=== PATIENT | male | born 1980 | race African-American/Black ===

== ENCOUNTER 2016-04-18 12:29 | Emergency (ER) | payer SELFPAY ==
[2016-04-18 12:37] VITALS: BP 110/75; PULSE 96; TEMP 97.7; BMI 24.3
--- NOTE | 2016-04-18 14:01 | PDOC ---
History of Present Illness - General Chief Complaint: Cold Symptoms Stated Complaint: COLD SYMPTOMS Time Seen by Provider: 04/18/16 13:27 History Source: Patient Exam Limitations: No Limitations - History of Present Illness Initial Comments: 04/18/16 13:57 35 y/o male presents to the ED with complaints of intermittent cough, fevers intimately for the past week and a half and left ear pressure. Patient states symptoms began while he was in [place] and continued since flying home. Patient denies change in appetite, weight loss, night sweats, smoking history, medical history, or recent illness. Timing/Duration: reports: intermittent Severity: reports: mild Possible Cause: Yes: occasional episodes Modifying Factors: improves with: coughing Associated Symptoms: reports: cough, earache, fever/chills, headache ( intermittent frontal 2 weeks). denies: nasal congestion, sinus infection, sore throat Past History - Past Medical History Allergies/Adverse Reactions: Allergies Allergy/AdvReac Type Severity Reaction Status Date / Time No Known Allergies Allergy Verified 04/18/16 12:37 Home Medications: Ambulatory Orders NK [No Known Home Medication] 04/18/16 - Psycho/Social/Smoking Cessation Hx Suicidal Ideation: No Smoking History: Never smoked Information on smoking cessation initiated: No Patient Lives Alone: No Lives with/in: spouse/SO Review of Systems - Review of Systems Able to Perform ROS?: Yes Constitutional: Yes: Chills, Fever HEENTM: Yes: Ear Pain Respiratory: Yes: Cough. No: Wheezing Cardiac (ROS): No: Symptoms Reported ABD/GI: No: Symptoms Reported : No: Symptoms Reported Musculoskeletal: No: Symptoms Reported Integumentary: No: Symptoms Reported Neurological: Yes: Headache (mild fromtal intermittent) Hematologic/Lymphatic: No: Symptoms Reported *Physical Exam - Vital Signs Last Vital Signs Temp Pulse Resp BP Pulse Ox 97.7 F 96 H 18 110/75 98 04/18/16 12:35 04/18/16 12:35 04/18/16 12:35 04/18/16 12:35 04/18/16 12:35 - Physical Exam General Appearance: Yes: Nourished, Appropriately Dressed. No: Apparent Distress HEENT: positive: EOMI, DELANO, TMs Normal, Pharynx Normal. negative: Pale Conjunctivae Neck: positive: Supple Respiratory/Chest: positive: Rhonchi (inspiratory to left lower base). negative : Respiratory Distress, Accessory Muscle Use Cardiovascular: positive: Regular Rhythm, Regular Rate. negative: Murmur Gastrointestinal/Abdominal: positive: Soft. negative: Tenderness Extremity: positive: Normal Capillary Refill Integumentary: positive: Normal Color, Warm, Moist Neurologic: positive: Normal Mood/Affect, Motor Strength 5/5 (ambulatory) ED Treatment Course - RADIOLOGY Radiology Studies Ordered: Category Date Time Status CHEST PA & LAT [RAD] Stat Radiology 04/18/16 13:34 Completed Medical Decision Making - Medical Decision Making 04/18/16 13:32 Pt with uri complaints intermittently x 10 days. Pt on exam had inspiratory rhonchi to left lower base Pt concerning for pneumonia. Chest pa /lat ordered 04/18/16 14:04 Chest xray - for acute findings. Pt clinically concerning for pneumonia . pt will be given a rx for zpak *DC/Admit/Observation/Transfer Diagnosis at time of Disposition: Cough Fever Qualifiers: Fever type: other Qualified Code(s): R50.81 - Fever presenting with conditions classified elsewhere Left lower lobe pneumonia Qualifiers: Pneumonia type: due to unspecified organism Qualified Code(s): J18.9 - Pneumonia, unspecified organism - Discharge Dispostion Disposition: HOME Condition at time of disposition: Good - Patient Instructions Printed Discharge Instructions: DI for Pneumonia -- Adult Additional Instructions: Although x-ray did not display pneumonia clinically you do present with symptoms concerning for pneumonia. I've given your prescription for azithromycin which I want you to take until completion. Please take Motrin or Tylenol for fever and return to ED if symptoms worsen
== END 2016-04-18 14:12 | disposition home or self-care (01) ==
LOC: JERFT 12:29
DX: J18.9 Pneumonia, unspecified organism (principal)
CPT/HCPCS: 71020-TC; 99281-25

== ENCOUNTER 2022-07-17 15:33 | Emergency (ER) | payer OTHER ==
[2022-07-17 15:44] VITALS: BP 123/84; PULSE 77; RESP 18; TEMP 98.1; BMI 25.8
[2022-07-17] MEDS ORDERED: ACETAMINOPHEN 500 MG TABLET (FP) PO ONE (16:48)
[2022-07-17] MEDS ORDERED: IBUPROFEN 600 MG TABLET (FP) PO ONE ×2 (16:48→16:54)
[2022-07-17] MEDS ORDERED: ACETAMINOPHEN 500 MG TABLET (FP) ONE (16:54)
== END 2022-07-17 17:24 | disposition home or self-care (01) ==
LOC: JERFT 15:33
DX: M54.50 Low back pain, unspecified (principal)
CPT/HCPCS: 99283-25